=== PATIENT | male | born 1970 | race Caucasian/White ===

== ENCOUNTER 2023-12-22 21:50 | Emergency (ER) | payer OTHER, BC ==
[2023-12-22] MEDS: Ketorolac 30 MG/ML SDV IM ONE (22:50)
== END 2023-12-22 23:10 | disposition home or self-care (01) ==
LOC: SUPCPDRO 21:50 → KA.ED 21:50
DX: S01.81XA Laceration without foreign body of other part of head, initial encounter (principal); S20.312A Abrasion of left front wall of thorax, initial encounter; M25.512 Pain in left shoulder; Z68.30 Body mass index [BMI] 30.0-30.9, adult; V49.40XA Driver injured in collision with unspecified motor vehicles in traffic accident, initial encounter
CPT/HCPCS: 71101-LT; 73030-LT; 96372; 99283; J1885